=== PATIENT | female | born 1990 | race Caucasian/White ===

== ENCOUNTER 2024-01-15 11:23 | Emergency (ER) | payer SELFPAY ==
[2024-01-15 11:35] VITALS: BP 100/56; BP 119/78; PULSE 65; PULSE 84; RESP 16; TEMP 36.8; O2SAT 97; O2SAT 99; BMI 22.5
--- NOTE | 2024-01-15 11:50 | ED.GENADULT ---
HPI - General Adult General Chief complaint: General Medical Stated complaint: FOUND SLEEPING IN CAR,DENY DRUG USE, PD WANTS EVAL Time Seen by Provider: 01/15/24 11:30 Source: patient Mode of arrival: EMS Limitations: no limitations History of Present Illness ED Provider: SETH HPI narrative: 33 yo female no sig PMH notes she works two jobs was working [employer] 3rd shift and didn't feel safe driving so she pulled over to sleep denies any drug abuse or trauma has no complaints. PD woke her up and was told to go to station or hospital. She chose hospital. No narcan given feels fine and wants to leave. complaint: sleepiness Onset (ago): hour(s) (few) Severity: mild Relieving factors: none Exacerbating factors: none Associated symptoms: denies other symptoms Treatments prior to arrival: none Related Data Allergies Allergy/AdvReac Type Severity Reaction Status Date / Time No Known Allergies Allergy Verified 01/15/24 11:41 Review of Systems Review of Systems: Constitutional : No Fever, No Chills ENT/Mouth : No sore throat, No Rhinorrhea Eyes: No Eye Pain, No Swelling, No Redness Cardiovascular : No Chest Pain, No SOB Respiratory : No Cough, No Sputum Gastrointestinal : No Nausea, No Vomiting Genitourinary : No Dysuria, No Urinary Frequency, No Hematuria, Musculoskeletal : No joint pain, No Myalgias, No Joint Swelling Skin : No Skin Lesions, No rash Neuro : No Weakness, No Numbness, No Dizziness, no Headache Psych : No Anxiety/Panic, No Depression All other systems reviewed and are negative [facility] Past Medical History Attestation statement: The following information was validated with the patient. Medical History No pertinent past medical history Social History Social History (Updated 01/15/24 @ 11:53 by Harika Marques DO) Patient Tobacco Use Status: Tobacco use Unknown Physical Exam ED Vital Signs: Vital Signs - 24 hr 01/15/24 11:35 Temperature 98.2 F Pulse Rate 84 Respiratory Rate 16 Blood Pressure 100/56 L Pulse Oximetry 97 Oxygen Delivery Method Room Air BMI result Body Mass Index 22.5 Appearance: Alert. Oriented X3. No acute distress. Eyes: Pupils equal, round and reactive to light. ENT: Pharynx normal. atraumatic Neck: Normal inspection. Neck supple. CVS: Normal heart rate and rhythm. Pulses normal. Respiratory: No respiratory distress. Breath sounds normal. Abdomen: Soft and non-tender. Skin: Skin warm and dry. Normal skin color. Normal skin turgor. Extremities: No lower extremity edema. No calf ttp Neuro: Oriented X 3. No motor deficit. No sensory deficit. Medical Decision Making Medical Decision Making MDM Narrative: 33 yo female with no sig PMH who is tired from two jobs was sleeping in parked car - no concern for CO poisonin here not altered no need for narcan easily woken pupils are normal at this time she wants to leave and declines services. stable for DC Differential Diagnosis Differential Diagnoses: The differential diagnosis associated with the presentation includes fatigue denies drug abuse Admission/Observation Consideration of admission/observation: Escalation of care including admission/observation considered Independent Historian Clinical information obtained from an independent historian. History obtained from or confirmed by: EMS Discharge Plan Discharge Clinical Impression: Normal exam Instructions: Normal Exam (ED) Additional Instructions: return for worsening symptoms or any other concerns.
[2024-01-15 13:11] VITALS: BP 106/70; PULSE 72; RESP 16; TEMP 36.8; O2SAT 98
== END 2024-01-15 13:11 | disposition home or self-care (01) ==
PROVIDERS: Emergency Provider Emergency Medicine
DX: G47.10 Hypersomnia, unspecified (principal)
CPT/HCPCS: 99282